=== PATIENT | female | born 1955 | race Caucasian/White ===

== ENCOUNTER 2019-05-07 08:49 | Outpatient (CLI) | payer BC, SELFPAY ==
--- NOTE | 2019-05-07 08:58 | MM_ITS ---
WS: [id number] SCREENING DIGITAL MAMMOGRAM WITH CAD HISTORY: SCREENING COMPARISON: 03/02/2018 and 10/23/2016 Bilateral CC and MLO views submitted. Computer aided detection analyzed. Breast composition: There are scattered areas of fibroglandular density. No suspicious masses, microc alcifications or architectural distortion. MM/[id number] IMPRESSION: BI-RADS: 1-Negative FOLLOW UP: 1 Year Follow-up
== END 2019-05-07 08:50 | disposition home or self-care (01) ==
LOC: RADSHAW 08:53
PROVIDERS: Family Provider Family Medicine; PCP Family Medicine; Visit Provider Family Medicine
DX: Z12.31 Encounter for screening mammogram for malignant neoplasm of breast (principal)
CPT/HCPCS: 77067

== ENCOUNTER 2020-07-31 12:54 | Outpatient (CLI) | payer BC, SELFPAY ==
--- NOTE | 2020-07-31 13:01 | MM_ITS ---
WS: [id number] BILATERAL DIGITAL SCREENING MAMMOGRAPHY WITH CAD CLINICAL INFORMATION: SCREENING HISTORY: Screening mammogram. No current complaints. COMPARISON: May 07, 2019 TECHNIQUE: Bilateral CC and MLO views. FINDINGS: Scattered fibroglandular densities bilaterally. No suspicious focal mass, asymmetry, calcifications, or architectural distortion. No evidence of malignancy. Punctate calcifications. MM/[place] [id number] IMPRESSION: BI-RADS: 2-Benign FOLLOW UP: 1 Year Follow-up Recommend return to annual screening mammography.
== END 2020-07-31 12:55 | disposition home or self-care (01) ==
LOC: RADSHAW 12:58
PROVIDERS: Family Provider Family Medicine; PCP Family Medicine; Visit Provider Family Medicine
DX: Z12.31 Encounter for screening mammogram for malignant neoplasm of breast (principal)
CPT/HCPCS: 77067

== ENCOUNTER → 2021-07-27 07:29 | Outpatient (BNVA) | payer BC, SELFPAY | PROVIDERS: Family Provider Family Medicine; PCP Family Medicine; Visit Provider Urology | DX: R32 Unspecified urinary incontinence (principal); N81.89 Other female genital prolapse | CPT/HCPCS: 81003 ==

== ENCOUNTER → 2023-04-16 15:00 | Outpatient (BNVA) | payer MEDICARE, SELFPAY | PROVIDERS: Family Provider Family Medicine; PCP Family Medicine; Visit Provider Nurse Practitioner Family | DX: R73.03 Prediabetes (principal); I10 Essential (primary) hypertension; E55.9 Vitamin D deficiency, unspecified | CPT/HCPCS: 80053; 80061; 82306; 82607; 83036; 83735; 84443; 85025 ==

== ENCOUNTER 2023-05-06 11:48 | Outpatient (CLI) | payer MEDICARE, SELFPAY ==
--- NOTE | 2023-05-06 12:00 | MM_ITS ---
WS: [id number] BILATERAL 3D TOMOSYNTHESIS DIGITAL SCREENING MAMMOGRAPHY WITH CAD CLINICAL INFORMATION: Z12.39 - Encounter for other screening for malignant neop... HISTORY: Screening mammogram. No current complaints. COMPARISON: 2020 TECHNIQUE: Bilateral CC and MLO views. FINDINGS: Scattered fibroglandular densities bilaterally. No suspicious focal mass, asymmetry, calcifications, or architectural distortion. No evidence of malignancy. A few incidental punctate calcifications. IMPRESSION: MM/[place] [id number] BI-RADS: 2-Benign FOLLOW UP: 1 Year Follow-up Recommend return to annual screening mammography.
== END 2023-05-06 11:49 | disposition home or self-care (01) ==
LOC: MOBLMAM 11:59
PROVIDERS: PCP Nurse Practitioner Family; Visit Provider Nurse Practitioner Family
DX: Z12.31 Encounter for screening mammogram for malignant neoplasm of breast (principal); R92.323 Mammographic fibroglandular density, bilateral breasts
CPT/HCPCS: 77063; 77067

== ENCOUNTER 2023-05-08 10:52 | Outpatient (CLI) | payer MEDICARE, SELFPAY ==
--- NOTE | 2023-05-08 10:59 | XR_ITS ---
WS: [id number] Examination: XR lumbar spine 2-3V* [id number] Reason for Exam: M54.50 - Low back pain, unspecified Date: 05/08/2023 Comparison: 03/12/2012 Findings: The bone density and the pedicles are intact. There is no anterior wedging or compression. There is no subluxation There is again noted disc space narrowing at L4-5 and L5-S1. Small osteophytes are present. Impression: There is no compression or subluxation There is been mild progression of the degenerative disc disease at L4-5 and L5-S1.
== END 2023-05-08 10:53 | disposition home or self-care (01) ==
LOC: RAD 10:53
PROVIDERS: PCP Nurse Practitioner Family; Visit Provider Nurse Practitioner Family
DX: M54.50 Low back pain, unspecified (principal)
CPT/HCPCS: 72100

== ENCOUNTER 2023-06-19 10:00 | Outpatient (CLI) | payer MEDICARE, SELFPAY ==
--- NOTE | 2023-06-19 10:15 | MR_ITS ---
WS: [id number] MRI LUMBAR SPINE NONCONTRAST HISTORY: lumbar back pain COMPARISON: None available. TECHNIQUE: Sagittal and axial multisequence imaging is submitted. Shallow central disc protrusion at T7-8. At T9-10 facet joint arthropathy encroaches upon the posteri or thecal sac contacting the thoracic cord. Normal lumbar alignment with no compression fractures or marrow edema. Mild disc space narrowing and desiccation at L4-5 and L5-S1. No fractures or marrow edema. Conus terminates normally at L1-2 disc level. L1-L2: Normal. L2-L3: Mild bilateral facet joint arthritis, asymmetric to the LEFT. L3-L4: Mild annular disc bulging. Shallow central disc protrusion in the LEFT foraminal broad-based d isc protrusion. There is mild encroachment upon the ventral thecal sac. Disc contact on the traversin g L4 nerve roots. Mild central and subarticular recess narrowing. L4-L5: Diffuse annular disc bulging. Broad-based disc protrusion centrally extends to the LEFT into t he proximal foramina. Contact on the thecal sac and the subarticular recesses. There is also osteophy tic ridging. Mild to moderate central and bilateral subarticular recess and mild foraminal stenosis. Moderate ligamentum flavum and facet arthritis. Mild disc encroachment upon the traversing L5 nerve r oots, LEFT greater than RIGHT. L5-S1: Osteophytic ridging and annular disc bulging. Disc contacts the S1 nerve roots in the subartic ular recesses. Mild central with moderate bilateral subarticular recess and bilateral foraminal steno sis, LEFT greater than RIGHT. Facet joint arthritis. Paravertebral soft tissues are negative. IMPRESSION: 1. L3-4: Mild central and bilateral subarticular recess stenosis due to disc and facet disease. Cent ral and LEFT foraminal disc protrusions contribute to the stenosis. 2. L4-5: Mild to moderate central with bilateral subarticular recess and mild foraminal stenosis. Di sc contact on the traversing L5 nerve roots, LEFT greater than RIGHT. 3. L5-S1: Mild central with moderate bilateral subarticular recess and foraminal stenosis, LEFT grea ter than RIGHT. Disc contacts the S1 nerve roots bilaterally and greater contact on the LEFT exiting L5 nerve root.
== END 2023-06-19 10:01 | disposition home or self-care (01) ==
LOC: RAD 10:00
PROVIDERS: PCP Nurse Practitioner Family; Visit Provider Nurse Practitioner Family
DX: M54.50 Low back pain, unspecified (principal)
CPT/HCPCS: 72148

== ENCOUNTER → 2023-07-01 08:30 | Outpatient (BNVA) | payer MEDICARE, SELFPAY | PROVIDERS: PCP Nurse Practitioner Family; Visit Provider Orthopaedic Surgery | DX: M54.42 Lumbago with sciatica, left side (principal) | CPT/HCPCS: 99203 ==

== ENCOUNTER → 2023-09-23 11:53 | Outpatient (BNVA) | payer MEDICARE, SELFPAY | PROVIDERS: PCP Nurse Practitioner Family; Visit Provider Nurse Practitioner Family | DX: R73.03 Prediabetes (principal); E78.5 Hyperlipidemia, unspecified | CPT/HCPCS: 80053; 80061; 83036; 85025 ==

== ENCOUNTER → 2023-10-24 10:45 | Outpatient (BNVA) | payer MEDICARE, SELFPAY | PROVIDERS: PCP Nurse Practitioner Family; Visit Provider Nurse Practitioner Family | DX: D72.829 Elevated white blood cell count, unspecified (principal) | CPT/HCPCS: 85025 ==